=== PATIENT | female | born 1990 | race Caucasian/White ===

== ENCOUNTER 2017-03-03 07:26 | Inpatient (IN) | payer BC ==
[2017-03-03 09:59] LABS: ABS Basophils 0.1 10^3/ul (0-0.2); ABS Eosinophils 0 10^3/ul (0-0.6); ABS Lymphocytes 1.8 10^3/ul (1.0-4.8); ABS Monocytes 0.9 10^3/ul (0-0.8); ABS Neutrophils 8.2 10^3/ul (1.5-7.7); ABS Nucleated RBC 0 10^3/ul; Eosinophil % 0.4 % (0-6); Hematocrit 34 % (35-47); Hemoglobin 11.6 g/dl (12.0-16.0); Lymphocyte % 16.3 % (25-47); Mean Corpuscular HGB Conc 35 g/dl (31-36); Mean Corpuscular Hemoglobin 33 pg (27-31); Mean Corpuscular Volume 97 fL (80-97); Mean Platelet Volume 8 um3 (7.4-10.4); Nucleated Red Blood Cells % 0.1; Platelet Count 303 10^3/ul (150-450); Red Blood Count 3.49 10^6/ul (4.0-5.4); Red Cell Distribution Width 12 % (10.5-15)
[2017-03-03] MEDS ORDERED: Oxytocin in LR* 20 UNITS/1,000 ML BAG IVPB SCH (10:00)
[2017-03-03 10:15] LABS: EGFR Non-African American 93.5 (>60)
[2017-03-03 16:57] LABS: Urine Appearance Cloudy; Urine Blood Negative (Negative); Urine Color Yellow; Urine Ketones Negative (Negative); Urine Protein Negative (Negative); Urine Specific Gravity 1.009 (1.010-1.030); Urine Urobilinogen Negative (Negative)
[2017-03-03] MEDS ORDERED: OBEPIDURAL* 250 ML EPIDURAL ONE (17:54)
[2017-03-03] MEDS ORDERED: Famotidine TAB* 20 MG PO PRN (18:41)
[2017-03-03] MEDS ORDERED: Sodium Citrate/Citric Acid* 15 ML UDC PO PRN (18:41)
[2017-03-03] MEDS ORDERED: Phenylephrine IV* 40 MCG/ML 10 ML SYRINGE IV PUSH PRN ×2 (18:41)
[2017-03-03] MEDS ORDERED: EPHEDrine (Pressors)* 50 MG/ML VIAL IV PUSH PRN ×2 (18:41)
[2017-03-03] MEDS ORDERED: OBEPIDURAL* 250 ML EPIDURAL SCH (19:00)
[2017-03-04] MEDS ORDERED: ceFOXitin 2 GM IVPREMIX* 2 GM/50 ML BAG ONE (00:44)
[2017-03-04] MEDS ORDERED: ceFOXitin 2 GM IVPREMIX* 2 GM/50 ML BAG IVPB ONE (00:48)
[2017-03-04] MEDS ORDERED: oxyCODONE/Acetamin 5/325 MG* TAB PO PRN ×4 (00:49→17:31)
[2017-03-04] MEDS ORDERED: Dibucaine 1% 28.35 GM TUBE PR PRN (00:49)
[2017-03-04] MEDS ORDERED: Morphine PF AMP (0.5MG/ML)* 5 MG/10 ML AMP ONE (00:52)
[2017-03-04] MEDS ORDERED: OXYTOCIN* 10 UNITS/ML 1 ML VIAL ONE (00:52)
[2017-03-04] MEDS ORDERED: fentaNYL* 50 MCG/ML 2 ML VIAL (100 MCG VIAL) ONE ×2 (00:52→03:13)
[2017-03-04] MEDS ORDERED: Sodium Bicarbonate 8.4% IV* 50 ML VIAL ONE (00:53)
[2017-03-04] MEDS ORDERED: Phenylephrine INJ* 10 MG/ML 1 ML VIAL (10 MG) ONE (00:53)
[2017-03-04] MEDS ORDERED: Chloroprocaine 3%* 20 ML VIAL ONE (00:53)
[2017-03-04] MEDS ORDERED: Lidocaine 2% PF* 10 ML AMP ONE (00:53)
[2017-03-04] MEDS ORDERED: Ibuprofen TAB* 600 MG PO SCH (01:00)
[2017-03-04] MEDS ORDERED: Ondansetron INJ* 2 MG/ML VIAL IV PRN ×3 (02:22→18:10)
[2017-03-04] MEDS ORDERED: Naloxone* 0.4 MG/ML 1 ML VIAL IV PRN ×2 (02:22→02:23)
[2017-03-04] MEDS ORDERED: fentaNYL* 50 MCG/ML 2 ML VIAL (100 MCG VIAL) IV PRN (02:22)
[2017-03-04] MEDS ORDERED: Nalbuphine* 20 MG/ML 1 ML VIAL IV PRN (02:23)
[2017-03-04] MEDS ORDERED: Ketorolac INJ* 30 MG/ML 1 ML VIAL ONE (02:51)
[2017-03-04] MEDS: Ketorolac INJ* 30 MG/ML 1 ML VIAL IV PRN ×3 (02:55→15:50)
[2017-03-04] MEDS: Simethicone TAB* 80 MG TAB.CHEW PO SCH ×4 (08:20→21:03)
[2017-03-04] MEDS: Levothyroxine TAB* 112 MCG TAB PO SCH (08:20)
[2017-03-04] MEDS: Witch Hazel PAD* JAR TOPICAL PRN (08:23)
[2017-03-04] MEDS: oxyCODONE/Acetamin 5/325 MG* TAB PO PRN ×3 (09:15→21:04)
[2017-03-05] MEDS: Ibuprofen TAB* 600 MG PO SCH ×3 (01:57→15:58)
[2017-03-05] MEDS: oxyCODONE/Acetamin 5/325 MG* TAB PO PRN ×3 (01:57→19:41)
[2017-03-05 08:01] LABS: ABS Basophils 0 10^3/ul (0-0.2); ABS Eosinophils 0.1 10^3/ul (0-0.6); ABS Lymphocytes 1.9 10^3/ul (1.0-4.8); ABS Monocytes 1.1 10^3/ul (0-0.8); ABS Neutrophils 11.4 10^3/ul (1.5-7.7); ABS Nucleated RBC 0 10^3/ul; Eosinophil % 0.6 % (0-6); Hematocrit 26 % (35-47); Hemoglobin 8.8 g/dl (12.0-16.0); Lymphocyte % 12.9 % (25-47); Mean Corpuscular HGB Conc 34 g/dl (31-36); Mean Corpuscular Hemoglobin 33 pg (27-31); Mean Corpuscular Volume 97 fL (80-97); Mean Platelet Volume 8 um3 (7.4-10.4); Nucleated Red Blood Cells % 0; Platelet Count 203 10^3/ul (150-450); Red Blood Count 2.66 10^6/ul (4.0-5.4); Red Cell Distribution Width 12 % (10.5-15); White Blood Count 14.5 10^3/ul (3.5-10.8)
[2017-03-05] MEDS: Ferrous Gluconate TAB* 324 MG TAB PO SCH ×2 (08:45→21:32)
[2017-03-05] MEDS: Simethicone TAB* 80 MG TAB.CHEW PO SCH ×4 (08:45→21:31)
[2017-03-05] MEDS: Levothyroxine TAB* 112 MCG TAB PO SCH (08:45)
[2017-03-05] MEDS: Docusate CAP* 100 MG PO PRN (21:31)
[2017-03-06] MEDS: oxyCODONE/Acetamin 5/325 MG* TAB PO PRN ×4 (00:27→21:38)
[2017-03-06] MEDS: Simethicone TAB* 80 MG TAB.CHEW PO SCH ×4 (08:26→21:37)
[2017-03-06] MEDS: Ferrous Gluconate TAB* 324 MG TAB PO SCH ×2 (08:26→21:37)
[2017-03-06] MEDS: Levothyroxine TAB* 112 MCG TAB PO SCH (08:49)
[2017-03-06] MEDS: Witch Hazel PAD* JAR TOPICAL PRN (09:01)
[2017-03-06] MEDS: Ibuprofen TAB* 600 MG PO SCH ×2 (18:06→18:07)
--- NOTE | 2017-03-06 22:22 | OP ---
DATE OF OPERATION: 03/04/17 - ROOM #[id number] DATE OF : 86 SURGEON: Remington Kenney MD JOB CHANGE CREW MEMBER: Tobi Colón CNM. ANESTHESIA: Epidural. PRE-OP DIAGNOSES: 39 plus 3 weeks' gestation, suspected intrauterine growth restriction, arrest of descent and failed vacuum delivery. POST-OP DIAGNOSES: 39 plus 3 weeks' gestation, suspected intrauterine growth restriction, arrest of descent and failed vacuum delivery. OPERATIVE PROCEDURE: Primary low transverse section. ESTIMATED BLOOD LOSS: 700 cc. URINE OUTPUT: 100 cc. IV FLUIDS: 1300 cc lactated Ringer's. MATERIALS TO LAB: Cord blood. INDICATIONS: This patient is a 26-year-old 1, para 0, who had been followed during her for apparent intrauterine growth restriction for the last several weeks. The fetus appeared to be less than 10th percentile, but there was very reassuring testing and normal fluid. The patient was scheduled for induction at 39 weeks. The patient had a favorable cervix on presentation and received Pitocin for induction. She received an epidural for anesthesia and also had spontaneous rupture of membranes with clear fluid. She progressed steadily to fully dilated and about +2 station. During her labor course, there had been intermittent late and variable decelerations and heart racing; however, these always resolved quickly with minor position changes. The patient pushed for about 2 hours making minimal change after the first hour. On examination, the head was felt to be somewhat asynclitic, but there appeared to be room in the pelvis for delivery. We discussed the options and the patient desired to proceed with a vacuum assisted delivery. She was counseled regarding the risks of scalp bruising and lacerations, worsened perineal lacerations, as well as failure to deliver vaginally. Attempts were made with the vacuum to deliver the head over 3 contractions and there was no significant further descent, so attempts were discontinued and the decision was made to proceed with a . She was extensively counseled and consent was signed. FINDINGS: Normal appearing uterus, fallopian tubes and ovaries. Delivery is productive of a 6 pound 7 ounces infant with Apgars of 8 and 9. Time of delivery was 0129. COMPLICATIONS: None. DESCRIPTION OF PROCEDURE: The risks, benefits, and alternatives were described to the patient and informed consent was obtained. The patient was taken to the operating room with IV running where epidural anesthesia was induced and found to be adequate. The patient was prepped and draped in the normal sterile fashion in the dorsal supine position with leftward tilt. A Pfannenstiel skin incision was made with a scalpel and this was carried down to the underlying fascia sharply. The fascia was then scored in the midline with the scalpel. The incision was extended using Wick scissors. The rectus muscles were dissected off the rectus fascia using blunt and sharp dissection. The rectus muscles were in the midline bluntly. The peritoneum was also entered bluntly. A bladder blade was placed. A bladder flap was created sharply using Metzenbaum scissors. A low transverse uterine incision was made with the scalpel. This was carried down to the amniotic cavity which was productive of clear fluid. The incision was extended with blunt traction. The head was elevated to the level of the incision without difficulty and delivered through the incision. With fundal pressure, the shoulders and body delivered without difficulty. The infant had an excellent tone and cried immediately on delivery. The cord was doubly clamped and cut. The infant was then handed to the awaiting junior oracle dba. Cord blood was collected. The placenta then delivered with manual extraction. The uterus was then exteriorized and cleared of all clots and debris. Uterine incision was reapproximated using 0 Polysorb in a running-locked fashion. A second layer of imbricating sutures of 0 Polysorb was also placed with good hemostasis. The posterior cul-de-sac was irrigated with saline. The uterus was then returned to the abdomen, and the incision was reinspected and noted to be hemostatic. The peritoneum was closed with 2-0 chromic in a running fashion. The fascia was closed with 0 Polysorb in a running fashion. Subcutaneous tissues were reapproximated using 2-0 chromic and interrupted sutures. The skin was then closed with 4-0 Monocryl in a subcuticular stitch. Mastisol and Steri-Strips were placed over the incision which was then covered with a sterile bandage. The patient tolerated the procedure well. Sponge, lap, and needle counts were correct x2. [id number]/[facility] #: [id number] MTDD
[2017-03-07] MEDS: oxyCODONE/Acetamin 5/325 MG* TAB PO PRN ×3 (02:51→12:30)
[2017-03-07] MEDS: Ibuprofen TAB* 600 MG PO SCH ×2 (05:17→09:27)
[2017-03-07] MEDS: Ferrous Gluconate TAB* 324 MG TAB PO SCH (08:29)
[2017-03-07] MEDS: Docusate CAP* 100 MG PO PRN (08:30)
[2017-03-07] MEDS: Simethicone TAB* 80 MG TAB.CHEW PO SCH ×2 (08:30→12:30)
[2017-03-07] MEDS: Levothyroxine TAB* 112 MCG TAB PO SCH (09:05)
[2017-03-07] MEDS ORDERED: Metoprolol Succinate XL TAB* 25 MG PO ONE (09:12)
--- NOTE | 2017-03-07 09:43 | PTEDU ---
Patient Name: ELAINE GARCÍA ELAINE GARCÍA selected video: Never Ever Shake a Baby to view on 03/07/2017 at 9:42:31 AM from [facility] [id number]
--- NOTE | 2017-03-07 11:36 | PTEDU ---
Patient Name: ELAINE GARCÍA ELAINE GARCÍA selected video: Never Ever Shake a Baby to view on 03/07/2017 at 11:36:09 AM from [id number]
--- NOTE | 2017-03-07 11:46 | PTEDU ---
Patient Name: ELAINE GARCÍA ELAINE GARCÍA selected video: BBOB: Nurturing Your Gorgeous &Growing Baby by to view on 03/07/2017 at 11:45:45 [id number]
[2017-03-07 12:54] VITALS: BP 119/74
== END 2017-03-07 13:03 | disposition home or self-care (01) | DRG 540 ==
LOC: MCHOBOUT 07:26 → MCHOB 08:48
PROVIDERS: ADMIT Obstetrics & Gynecology; ATTEND Obstetrics & Gynecology
PROC: 3E033VJ Introduction of Other Hormone into Peripheral Vein, Percutaneous Approach (ICD-10-PCS; 2017-03-04)
PROC: 10D00Z1 Extraction of Products of Conception, Low, Open Approach (ICD-10-PCS; principal; 2017-03-04 01:00)
DX: O36.5930 Maternal care for other known or suspected poor fetal growth, third trimester, not applicable or unspecified (principal); O10.92 Unspecified pre-existing hypertension complicating childbirth; O32.4XX0 Maternal care for high head at term, not applicable or unspecified; O66.5 Attempted application of vacuum extractor and forceps; O99.284 Endocrine, nutritional and metabolic diseases complicating childbirth; E03.9 Hypothyroidism, unspecified; O99.344 Other mental disorders complicating childbirth; O90.81 Anemia of the puerperium; D64.9 Anemia, unspecified; Z3A.39 39 weeks gestation of pregnancy; Z37.0 Single live birth; F41.9 Anxiety disorder, unspecified
CPT/HCPCS: 36415; 80053; 81003; 81015; 84550; 85025; 86850; 86900; 86901; 87077; 87086; A9270-GY; J0694; J1885; J2001; J2400; J2405; J2590; J3010

== ENCOUNTER 2017-03-11 09:24 | Emergency (ER) | payer BC ==
[2017-03-11] MEDS ORDERED: Morphine INJ* 4 MG/ML 1 ML CARPUJECT IV ONE (10:08)
[2017-03-11] MEDS ORDERED: Ondansetron INJ* 2 MG/ML VIAL IV ONE (10:08)
[2017-03-11 10:27] LABS: ABS Basophils 0 10^3/ul (0-0.2); ABS Eosinophils 0.2 10^3/ul (0-0.6); ABS Lymphocytes 1.2 10^3/ul (1.0-4.8); ABS Monocytes 1.1 10^3/ul (0-0.8); ABS Neutrophils 13.7 10^3/ul (1.5-7.7); ABS Nucleated RBC 0 10^3/ul; Eosinophil % 1.3 % (0-6); Hematocrit 31 % (35-47); Hemoglobin 10.7 g/dl (12.0-16.0); Lymphocyte % 7.5 % (25-47); Mean Corpuscular HGB Conc 34 g/dl (31-36); Mean Corpuscular Hemoglobin 33 pg (27-31); Mean Corpuscular Volume 96 fL (80-97); Mean Platelet Volume 7 um3 (7.4-10.4); Nucleated Red Blood Cells % 0; Platelet Count 548 10^3/ul (150-450); Red Blood Count 3.26 10^6/ul (4.0-5.4); Red Cell Distribution Width 12 % (10.5-15); White Blood Count 16.2 10^3/ul (3.5-10.8)
[2017-03-11 10:42] LABS: EGFR Non-African American 104.8 (>60)
[2017-03-11] MEDS ORDERED: HYDROmorphone INJ* 2 MG/ML CARPUJECT SYRINGE IV SLOW PU ONE (10:51)
[2017-03-11 11:57] LABS: Urine Appearance Cloudy; Urine Blood 2+ (Negative); Urine Color Yellow; Urine Ketones Trace (Negative); Urine Protein Negative (Negative); Urine Specific Gravity 1.023 (1.010-1.030); Urine Urobilinogen Negative (Negative)
[2017-03-11] MEDS ORDERED: Iohexol 300* (CONTRAST) 10 ML SDV IV ONE (11:58)
--- NOTE | 2017-03-11 12:19 | RAD ---
HISTORY: Lower abdominal pain, COMPARISONS: None relevant TECHNIQUE: Multiple transverse and longitudinal ultrasound images were obtained of the pelvis using grayscale, color Doppler, and spectral Doppler imaging using the transabdominal and endovaginal transducers. FINDINGS: UTERUS: The uterus measures 14.2 x 6.4 x 8.7 cm. The uterus is diffusely enlarged consistent with the recent state. ENDOMETRIUM: The endometrial stripe is smooth. The endometrium measures 2.1 cm in thickness. There is no internal vascularity. CUL-DE-SAC: There is no free fluid within the cul-de-sac. RIGHT OVARY: The right ovary measures 2.9 x 3.3 x 1.7 cm. Normal arterial and venous waveforms are identifiable within the ovary on spectral Doppler imaging. LEFT OVARY: The left ovary measures 3.4 x 2 x 1.5 cm. Normal arterial and venous waveforms are identifiable within the ovary on spectral Doppler imaging. BLADDER: The visualized bladder is unremarkable. OTHER: None IMPRESSION: THICKENED ENDOMETRIUM, WITHOUT INTERNAL VASCULARITY TO SUGGEST RETAINED PRODUCTS OF CONCEPTION
[2017-03-11] MEDS ORDERED: cefTRIAXone(*) 1 GM in NS 0.9% 50 ML* 50 ML IVPB ONE (12:43)
--- NOTE | 2017-03-11 13:06 | RAD ---
INDICATION: Abdominal pain following recent March 04, 2017 COMPARISON: Pelvic sonogram March 11, 2017 TECHNIQUE: Axial source images were obtained from the hemidiaphragms to the symphysis pubis following administration of oral and intravenous contrast. 85 mL Omnipaque 300 was utilized. Coronal and sagittal reconstructed images were acquired. Lung bases: The lung bases are clear. Liver: The liver is normal in size. There are no masses. There is no ductal dilatation. Gallbladder: There are no calcified gallstones. There is no evidence of wall thickening or pericholecystic fluid. Spleen: The spleen is normal in size. There are no masses. Pancreas: There is no focal pancreatic mass or ductal dilatation. Adrenal glands: There is no evidence of adrenal mass. Kidneys: The kidneys are normal in size and position. There are prompt nephrograms and there is prompt excretion bilaterally. There is a 1 cm lower pole right renal cyst. There is no evidence of nephrolithiasis. Adenopathy: There is no evidence of adenopathy by size criteria. Fluid collections: There are no significant localized fluid collections. There is minor stranding of the subcutaneous fat in the anterior lower pelvis and anterior to the uterus consistent with recent intervention. There is scant free fluid in the cul-de-sac. Vessels:There are no significant atherosclerotic changes involving the aorta. There is no focal aneurysm. The iliac vessels are normal in caliber. The IVC appears normal. GI tract: There are no acute CT bowel findings. There is no obstruction. The stomach and small bowel appear normal. The lower GI tract is normal. The cecum, ileocecal valve, and terminal ileum appear normal. The appendix is visualized and appear normal. Pelvic organs: The uterus is enlarged and heterogeneous consistent with being recently . There are prominent vessels in the right adnexa. There is no discrete adnexal mass. The uterus and ovaries are better evaluated on the concurrent ultrasound. Bladder: There are no bladder masses. There is no evidence of extravasation. Abdominal and pelvic soft tissues: The extraperitoneal abdominal and pelvic soft tissues otherwise appear normal.. Osseous structures: There are no acute osseous findings. Other: None IMPRESSION: ENLARGED AND HETEROGENEOUS UTERUS COMPATIBLE WITH BEING RECENTLY . MINOR POSTSURGICAL CHANGES CONSISTENT WITH RECENT .
[2017-03-11] MEDS ORDERED: oxyCODONE/Acetamin 5/325 MG* TAB PO ONE (14:13)
[2017-03-11] MEDS ORDERED: Ketorolac INJ* 30 MG/ML 1 ML VIAL IV PUSH ONE (15:38)
[2017-03-11] MEDS ORDERED: LORazepam INJ* 2 MG/ML 1 ML VIAL IV PUSH ONE (15:38)
[2017-03-11 17:11] LABS: Urine Appearance Clear; Urine Blood Negative (Negative); Urine Color Yellow; Urine Ketones Trace (Negative); Urine Protein Negative (Negative); Urine Specific Gravity 1.041 (1.010-1.030); Urine Urobilinogen Negative (Negative)
[2017-03-11 18:23] VITALS: BP 108/68
--- NOTE | 2017-03-12 16:13 | ED ---
Sasha Alexandre Gabriel, scribed for Allen Bosch MD on 03/11/17 at 1005 . Abdominal Pain/Female - HPI Summary HPI Summary: This patient is a 26 year old F presenting to [facility] accompanied by her father in law with a chief complaint of RLQ pain since yesterday that is worse today. The patient rates the pain 8/10 in severity and radiates into her pelvis. Symptoms aggravated by any movement, talking, and coughing. Patient reports back pain, trouble starting a stream of urine, and constipation. Patient denies vomiting, hematuria, and LE edema. The patient had a on 03/04/17 after she almost had fully delivered the baby vaginally, . The patient believes that her bladder was knicked during the . Patient has a history of UTIs. - History of Current Complaint Chief Complaint: EDAbdPain Stated Complaint: PELVIC PRESSURE,PAIN ON RT SIDE OF ABD Time Seen by Provider: 03/11/17 09:54 Hx Obtained From: Patient Onset/Duration: Lasting Days - 1, Still Present Timing: Constant Severity Initially: Mild Severity Currently: Severe Pain Intensity: 8 Pain Scale Used: 0-10 Numeric Location: Discrete At: RLQ Radiates: No Aggravating Factor(s): Movement, Other: - coughing and speaking Associated Signs and Symptoms: Positive: Negative - vomiting, hematuria, and LE edema., Other: - back pain, trouble starting a stream of urine, and constipation Allergies/Adverse Reactions: Allergies Allergy/AdvReac Type Severity Reaction Status Date / Time Metronidazole [From Flagyl] Allergy GI Upset Verified 03/11/17 09:37 Sulfamethoxazole Allergy GI Upset Verified 03/11/17 09:37 w/Trimethoprim [From Bactrim] Home Medications: Home Medications Metoprolol Succinate XL TAB* [Toprol XL TAB*] 25 mg PO DAILY 03/11/17 [History Confirmed 03/11/17] Vitamin TAB* 1 tab PO DAILY 03/11/17 [History Confirmed 03/11/17] PMH/Surg Hx/FS Hx/Imm Hx Endocrine/Hematology History: Reports: Hx Thyroid Disease Cardiovascular History: Reports: Hx Hypercholesterolemia, Hx Hypertension GI History: Reports: Hx Irritable Bowel Comment Only: Other GI Disorders - IBS Opthamlomology History: Denies: Hx Cataracts EENT History: Denies: Hx Deafness Neurological History: Denies: Hx CVA, Hx Dementia Psychiatric History: Reports: Hx Anxiety Infectious Disease History: No Infectious Disease History: Denies: Traveled Outside the [place] in Last 30 Days - Family History Known Family History: Negative: Renal Disease, Respiratory Disease, Seizure Disorder - Social History Lives: With Family Alcohol Use: None Substance Use Type: Reports: None Smoking Status (MU): Never Smoked Tobacco Review of Systems Negative: Fever, Chills Negative: Erythema Negative: Sore Throat Negative: Chest Pain Negative: Shortness Of Breath, Cough Positive: Abdominal Pain, Other - constipation. . Negative: Vomiting, Diarrhea , Nausea Genitourinary: Negative - hematuria Positive: other - trouble starting a stream of urine. Negative: dysuria, hematuria Positive: Other - back pain . Negative: Myalgia, Edema Negative: Rash Neurological: Negative - dizziness All Other Systems Reviewed And Are Negative: Yes Physical Exam - Summary Physical Exam Summary: Constitutional: Well-developed, Well-nourished, Alert. (-) Distressed Skin: Warm, Dry HENT: Normocephalic; Atraumatic Eyes: Conjunctiva normal Neck: Musculoskeletal ROM normal neck. (-) JVD, (-) Stridor, (-) Tracheal deviation Cardio: Rhythm regular, rate normal, Heart sounds normal; Intact distal pulses; The pedal pulses are 2+ and symmetric. Radial pulses are 2+ and symmetric. (-) Murmur Pulmonary/Chest wall: Effort normal. (-) Respiratory distress, (-) Wheezes, (-) Rales Abd: Soft, (+) Tenderness, (-) Distension, (+) Guarding, (+) Rebound, incision is clean, dry, and intact. Musculoskeletal: (-) Edema Lymph: (-) Cervical adenopathy Neuro: Alert, Oriented x3 Psych: Mood and affect Normal Triage Information Reviewed: Yes Vital Signs On Initial Exam: Initial Vitals Temp Pulse Resp BP Pulse Ox 98.6 F 106 16 133/70 97 03/11/17 09:34 03/11/17 09:34 03/11/17 09:34 03/11/17 09:34 03/11/17 09:34 Vital Signs Reviewed: Yes - [place] Coma Scale Coma Scale Total: 15 Diagnostics - Vital Signs Vital Signs Temp Pulse Resp BP Pulse Ox 03/11/17 09:34 98.6 F 106 16 133/70 97 - Laboratory Result Diagrams: 03/11/17 10:12 03/11/17 10:12 Lab Statement: Any lab studies that have been ordered have been reviewed, and results considered in the medical decision making process. - CT CT ABD/Pelvs CT Interpretation Completed By: Radiologist - ENLARGED AND HETEROGENEOUS UTERUS COMPATIBLE WITH BEING RECENTLY . MINOR POSTSURGICAL CHANGES CONSISTENT WITH RECENT . ED physician has reviewed this radiology report. - Additional Comments Diagnostic Additional Comments: Transvag/pelvic US reveals, per radiologist, THICKENED ENDOMETRIUM, WITHOUT INTERNAL VASCULARITY TO SUGGEST RETAINED PRODUCTS OF CONCEPTION ED physician has reviewed this radiology report. Re-Evaluation - Re-Evaluation First Eval Re-Evaluation Time: 18:00 Change: Improved Comment: The pain has decreased and has no ABD tenderness. Discussed that the pain she feels that likely due to pain of the healing process. Abdominal Pain Fem Course/Dx - Course Course Of Treatment: This patient is a 26 year old F presenting to [facility] accompanied by her father in law with a chief complaint of RLQ pain since yesterday that is worse today. The patient rates the pain 8/10 in severity and radiates into her pelvis. Symptoms aggravated by any movement, talking, and coughing. Patient reports back pain, trouble starting a stream of urine, and constipation. Patient denies vomiting, hematuria, and LE edema. The patient had a on 03/04/17 after she almost had fully delivered the baby vaginally, . The patient believes that her bladder was knicked during the . Patient has a history of UTIs. CT ABD/Pelvis reveals, per radiologist, ENLARGED AND HETEROGENEOUS UTERUS COMPATIBLE WITH BEING RECENTLY . MINOR POSTSURGICAL CHANGES CONSISTENT WITH RECENT . Transvag/pelvic US reveals, per radiologist, THICKENED ENDOMETRIUM, WITHOUT INTERNAL VASCULARITY TO SUGGEST RETAINED PRODUCTS OF CONCEPTION. All patient exams were negative. I recommended pump and dump for a few days due to the pain medications she was given at her visit. Test results with no significant abnormalities. UA and bloodwork obtained. In the ED course the patient was given Percocet, Zofran, morphine, Ativan, toradol, and dilaudid. 15:19 We discussed patient care with Dr. Corrales and they recommended to straight Cath the patient. Patient will be discharged with prescription for toradol and follow up from her OBGYN. The patient is agreeable with this plan. - Diagnoses Provider Diagnoses: Post-operative pain, Abdominal pain - Provider Notifications Discussed Care Of Patient With: Iris Camacho Time Discussed With Above Provider: 15:19 Instructed by Provider To: Other - We discussed patient care with Dr. Corrales and they recommended to straight Cath the patient. Discharge - Discharge Plan Condition: Stable Disposition: ADMITTED TO [facility] Prescriptions: Ketorolac TAB * [Toradol TAB *] 10 mg PO Q6H #16 tab Patient Education Materials: Ketorolac (By mouth), Acute Abdominal Pain (ED) Referrals: Jose Guadalupe CARRANZA,Isra Armstrong [Primary Care Provider] - Additional Instructions: Follow up with your HYDROPULPER OPERATOR in 3-5 days. RETURN TO EMERGENCY DEPARTMENT FOR ANY NEW OR WORSENING SYMPTOMS The documentation as recorded by the Sasha sorto Gabriel accurately reflects the service I personally performed and the decisions made by me, Allen Bosch MD.
--- NOTE | 2017-03-13 18:31 | ED ---
Progress - Progress Note Progress Note: Pt's prelim urine cx reveals 25-50,000. W/o sx, this does not qualify for UTI. Final sens pending. Re-Evaluation - Re-Evaluation First Eval Re-Evaluation Time: 18:00 Change: Improved Comment: The pain has decreased and has no ABD tenderness. Discussed that the pain she feels that likely due to pain of the healing process. Course/Dx - Course Course Of Treatment: This patient is a 26 year old F presenting to [facility] accompanied by her father in law with a chief complaint of RLQ pain since yesterday that is worse today. The patient rates the pain 8/10 in severity and radiates into her pelvis. Symptoms aggravated by any movement, talking, and coughing. Patient reports back pain, trouble starting a stream of urine, and constipation. Patient denies vomiting, hematuria, and LE edema. The patient had a on 03/04/17 after she almost had fully delivered the baby vaginally, . The patient believes that her bladder was knicked during the . Patient has a history of UTIs. CT ABD/Pelvis reveals, per radiologist, ENLARGED AND HETEROGENEOUS UTERUS COMPATIBLE WITH BEING RECENTLY . MINOR POSTSURGICAL CHANGES CONSISTENT WITH RECENT . Transvag/pelvic US reveals, per radiologist, THICKENED ENDOMETRIUM, WITHOUT INTERNAL VASCULARITY TO SUGGEST RETAINED PRODUCTS OF CONCEPTION. All patient exams were negative. I recommended pump and dump for a few days due to the pain medications she was given at her visit. Test results with no significant abnormalities. UA and bloodwork obtained. In the ED course the patient was given Percocet, Zofran, morphine, Ativan, toradol, and dilaudid. 15:19 We discussed patient care with Dr. Corrales and they recommended to straight Cath the patient. Patient will be discharged with prescription for toradol and follow up from her OBGYN. The patient is agreeable with this plan. - Diagnoses Provider Diagnoses: Post-operative pain, Abdominal pain - Provider Notifications Time Discussed With Above Provider: 15:19 Instructed by Provider To: Other - We discussed patient care with Dr. Corrales and they recommended to straight Cath the patient.
--- NOTE | 2017-03-14 09:06 | ED ---
Progress - Progress Note Progress Note: Pt's prelim urine cx reveals 25-50,000. W/o sx, this does not qualify for UTI. Final sens pending. UPDATE: Pt's final cx and sens reveals organism is mostly pansensitive. Based on sx of pelvic pain s/p and h/o UTI, spoke w/ pt. She reports ketoralac PO is helping more than the oxycodone she received by OBGYN s/p delivery. She is still having pain, mostly on the Rt, that feel like intermittent waves of contractions - she suspects these are her body's muscles eden back into place (had CT and US while here w/o acute findings). She denies UTI sx of dysuria, frequency, urge, hematuria, flank pain, fever, chills , nausea, vomiting. Reports she does have some hesitation w/ urination but is able to go when she gives herself a minute. Agrees to monitor herself for sx and f/u w/ PCP or OBGYN if these sx present to start anbx if necessary. Not necessary at this time. Re-Evaluation - Re-Evaluation First Eval Re-Evaluation Time: 18:00 Change: Improved Comment: The pain has decreased and has no ABD tenderness. Discussed that the pain she feels that likely due to pain of the healing process. Course/Dx - Course Course Of Treatment: This patient is a 26 year old F presenting to [facility] accompanied by her father in law with a chief complaint of RLQ pain since yesterday that is worse today. The patient rates the pain 8/10 in severity and radiates into her pelvis. Symptoms aggravated by any movement, talking, and coughing. Patient reports back pain, trouble starting a stream of urine, and constipation. Patient denies vomiting, hematuria, and LE edema. The patient had a on 03/04/17 after she almost had fully delivered the baby vaginally, . The patient believes that her bladder was knicked during the . Patient has a history of UTIs. CT ABD/Pelvis reveals, per radiologist, ENLARGED AND HETEROGENEOUS UTERUS COMPATIBLE WITH BEING RECENTLY . MINOR POSTSURGICAL CHANGES CONSISTENT WITH RECENT . Transvag/pelvic US reveals, per radiologist, THICKENED ENDOMETRIUM, WITHOUT INTERNAL VASCULARITY TO SUGGEST RETAINED PRODUCTS OF CONCEPTION. All patient exams were negative. I recommended pump and dump for a few days due to the pain medications she was given at her visit. Test results with no significant abnormalities. UA and bloodwork obtained. In the ED course the patient was given Percocet, Zofran, morphine, Ativan, toradol, and dilaudid. 15:19 We discussed patient care with Dr. Corrales and they recommended to straight Cath the patient. Patient will be discharged with prescription for toradol and follow up from her OBGYN. The patient is agreeable with this plan. - Diagnoses Provider Diagnoses: Post-operative pain, Abdominal pain - Provider Notifications Time Discussed With Above Provider: 15:19 Instructed by Provider To: Other - We discussed patient care with Dr. Corrales and they recommended to straight Cath the patient.
== END 2017-03-11 18:22 | disposition short-term general hospital (02) ==
LOC: ED 09:24
DX: G89.18 Other acute postprocedural pain (principal); R10.2 Pelvic and perineal pain; K59.00 Constipation, unspecified; Z86.79 Personal history of other diseases of the circulatory system; M54.9 Dorsalgia, unspecified
CPT/HCPCS: 36415; 74177; 76830; 76856; 80053; 81003; 81015; 83605; 83690; 85025; 86140; 87077; 87086; 87186; 96374; 96375; 99283; A9270-GY; J0696; J1170; J1885; J2060; J2270; J2405; Q9967